=== PATIENT | female | born 1960 | race Caucasian/White ===

== ENCOUNTER 2017-04-09 23:21 | Emergency (ER) | payer OTHER, MEDICAID ==
[~2017-04-09] VITALS: Ht 165.1 cm; Wt 215.9 kg
[~2017-04-09 23:21] MED LIST: ACETAMINOPHEN325 M1 PO; ACID CONTROLLER10 MG PO; ADULT WAL-100 MG/5 M PO; ALBUTEROL2.5 MG/3 M INH; ALBUTEROL2.5 MG/31 INH; ATIVAN1 MG PO; CARVEDILOL3.125 MG PO; DEEP SEA NASAL44 M1 NASAL; DEPAKOTE ER500 MG PO; DEPO-MEDRO80 MG/1 ML; DILTIAZEM HCL60 MG PO; DIPHEDRYL25 M2 PO; DUONEB 2.5-0.5 M3 ML INH; EFFEXOR XR37.5 MG PO; EFFEXOR50 MG PO; FAMOTIDINE 20 M20 MG PO; FLEET ENEMA118 ML; FLEET ENEMA118 ML RC; FLEXERIL PO; HUMALOG100 UNIT/1; HYDROCODON-ACE1 EAC7 PO; IBUPROFEN 200200 M1 PO; LEVOTHROID75 MCG PO; LEVOTHYROXIN0.088 MG PO; LEXAPRO20 MG PO; LOPERAMIDE 2 MG2 M1 PO; MAALOX525 MG/15 PO; MUCINEX600 MG PO; NORCO 10-325 T1 EACH PO; PULMICORT0.5 MG/2 M IH; ROCEPHIN 1 GM VL1 G1; RULOX SUSPENSI355 ML PO; SERTRALINE HCL100 MG PO; THERA-M CAPLET1 EAC1 PO; TRAZODONE HCL50 MG PO; VENLAFAXINE HC150 M1 PO; XANAX 0.5 MG0.5 MG PO; ZOSYN 3.3753.375 GM IVPB; ZOSYN 3/0.373.375 G3 IV
[2017-04-09 23:52] LABS: HEMATOCRIT 27.3 % (37.0-47.0); HEMOGLOBIN 8.7 gm/dL (12.0-15.0); MCH 29.2 pg (26.0-34.0); MCHC 31.7 g/dL (28.0-37.0); MCV 92.1 fL (80.0-100.0); PLATELET COUNT 424 thou/uL (150-400); RBC 2.97 mil/uL (4.20-5.00); RDW 15.2 % (10.5-14.5)
[2017-04-09 23:57] LABS: MANUAL DIFF YES
[2017-04-10] LABS: CALCIUM 8.6 mg/dL (8.5-10.1); POTASSIUM 5.2 mmol/L (3.5-5.1)
[2017-04-10 00:07] LABS: ABG SAMPLE TYPE ARTERIAL; BE(vivo) 6.7 mmol/L (-2 to +3); HCO3 33.2 mmol/L (22.0-26.0); LACTATE 0.87 mmol/L (0.5-2.0); O2(CT) 12.6 mL/dL (15.0-23.0); O2Hb 98.2 % (92.0-98.0); PCO2 60.3 mmHg (35.0-45.0); PO2 230.2 mmHg (80.0-100.0); pH 7.359 (7.360-7.450); sO2 99.4 % (92.0-98.0); tCO2 35.1 mmol/L (24.0-30.0)
[2017-04-10 00:08] LABS: STICK SITE L.RADIAL; TIDAL VOLUME 550 ml
[2017-04-10 00:40] LABS: TOTAL CELL COUNT 100
[2017-04-10 00:41] LABS: POLYCHROMASIA SLIGHT
== END 2017-04-10 01:34 | disposition home or self-care (01) ==
LOC: ER 23:21
PROVIDERS: Emergency Medicine
DX: R06.00 Dyspnea, unspecified (principal); K21.9 Gastro-esophageal reflux disease without esophagitis; E66.01 Morbid (severe) obesity due to excess calories; E03.9 Hypothyroidism, unspecified; F41.9 Anxiety disorder, unspecified; I48.91 Unspecified atrial fibrillation; J44.9 Chronic obstructive pulmonary disease, unspecified; F32.9 Major depressive disorder, single episode, unspecified; I50.9 Heart failure, unspecified; Z88.8 Allergy status to other drugs, medicaments and biological substances; Z95.0 Presence of cardiac pacemaker; Z87.891 Personal history of nicotine dependence

== ENCOUNTER 2017-04-17 20:47 | Emergency (ER) | payer OTHER, MEDICAID ==
[~2017-04-17] VITALS: Ht 157.5 cm; Wt 214.0 kg
--- NOTE | ~2017-04-17 | EKG ---
[place] [address] [facility] [employer] [place] [address] ELECTROCARDIOGRAM REPORT Name: YOUSIF PRESTON Room #: [facility] Tani#: [id number] Admission: 04/17/17 Attend Phys: Discharge: 04/17/17 Date of : 62 Report #: [id number] THIS REPORT FOR: //name// [facility] ED Test Date: 2017-04-17 Test Time: 20:52:24 Pat Name: YOUSIF PRESTON Department: Room: Gender: F Siding Stapler: SHEA : 1960 Requested By: Dorian Thapa Order Number: [id number] MD: Orville Elmore Measurements Intervals Reeders Rate: 88 P: 44 MA: 205 QRS: 107 QRSD: 108 T: 1 QT: 356 QTc: 431 Interpretive Statements Sinus rhythm Borderline prolonged MA interval Right axis deviation Borderline low voltage, extremity leads Probable anteroseptal infarct, old Compared to ECG 09/13/2015 11:54:06 Right-axis deviation now present Ventricular premature complex(es) no longer present Electronically Signed On 04-19-2017 8:16:11 CDT by Orville Elmore [email or web address] <ELECTRONICALLY SIGNED> By: Orville Elmore MD, [facility] 04/19/17 0816 51 51 Orville Elmore MD, [facility] /EPI
[2017-04-17 21:10] LABS: URINE BILIRUBIN NEGATIVE (Negative); URINE BLOOD NEGATIVE (Negative); URINE COLOR YELLOW; URINE GLUCOSE-RANDOM* NEGATIVE (Negative); URINE KETONES NEGATIVE (Negative); URINE LEUKOCYTES-REFLEX NEGATIVE (Negative); URINE PROTEIN (DIPSTICK) TRACE (Negative); URINE SPECIFIC GRAVITY <= 1.005 (1.003-1.035)
[2017-04-17 21:16] LABS: HEMATOCRIT 26.4 % (37.0-47.0); MCH 29.8 pg (26.0-34.0); MCHC 30.4 g/dL (28.0-37.0); MCV 97.9 fL (80.0-100.0); PLATELET COUNT 300 thou/uL (150-400); RBC 2.69 mil/uL (4.20-5.00); RDW 16.8 % (10.5-14.5)
[2017-04-17 21:29] LABS: ANION GAP 4 mmol/L (7-16); BUN 18 mg/dL (7-18); CALCIUM 6.4 mg/dL (8.5-10.1); CHLORIDE 104 mmol/L (98-107); CO2 28 mmol/L (21-32); CREATININE 1.2 mg/dL (0.6-1.0); GLUCOSE 58 mg/dL (74-106); SODIUM 136 mmol/L (136-145)
[2017-04-17 21:36] LABS: ALBUMIN 1.7 g/dL (3.4-5.0); ALKALINE PHOSPHATASE 566 U/L (46-116); MAGNESIUM 2.6 mg/dL (1.8-2.4); SGOT 224 U/L (15-37); SGPT 104 U/L (30-65); TOTAL BILIRUBIN 0.4 mg/dL (<0.1-1.0); TOTAL PROTEIN 6.8 g/dL (6.4-8.2); TROPONIN-I < 0.04 ng/mL (<0.04-0.07)
[2017-04-17 21:42] LABS: MANUAL DIFF YES; POTASSIUM > 10.0 mmol/L (3.5-5.1); WBC 83.1 thou/uL (4.0-11.0)
[2017-04-18 07:30] LABS: BLASTS 1 %; MYELOCYTES 15 %; NUCLEATED RBCS 13 /100WBC; TOTAL CELL COUNT 100
[2017-04-18 07:35] LABS: METAMYELOCYTES 18 %; PROMYELOCYTES 1 %
[2017-04-18 07:48] LABS: ANISOCYTOSIS 1+
[2017-04-18 11:18] LABS: ATYPICAL LYMPHS 4 %
== END 2017-04-17 23:11 ==
LOC: ER 20:47
PROVIDERS: Emergency Medicine
DX: I46.9 Cardiac arrest, cause unspecified (principal); K21.9 Gastro-esophageal reflux disease without esophagitis; E66.01 Morbid (severe) obesity due to excess calories; E03.9 Hypothyroidism, unspecified; F41.9 Anxiety disorder, unspecified; I48.91 Unspecified atrial fibrillation; J44.9 Chronic obstructive pulmonary disease, unspecified; F32.9 Major depressive disorder, single episode, unspecified; I50.9 Heart failure, unspecified; Z95.0 Presence of cardiac pacemaker; Z88.8 Allergy status to other drugs, medicaments and biological substances; Z87.891 Personal history of nicotine dependence